=== PATIENT | female | born 1990 | race Caucasian/White ===

== ENCOUNTER 2018-08-07 12:45 | Observation (INO) | payer OTHER ==
--- NOTE | 2018-08-07 14:10 | PDGENHP ---
History and Physical - Chief Complaint contractions - History of Present Illness 28 at 33w4d by 6w6d US not c/w LMP, here for evaluation of contractions. Pt seen in the office today for regular visit. Noted contractions over the past 2 weeks. FFN was obtained, then SVE = 1/50%/-[address] Frank, who sent her to L&D for extended monitoring, after monitoring in the office showed regular contractions. Pt says these contractions over the past 2 weeks can occasionally be uncomfortable, but are not painful. They are the same as yesterday, which may be a little more than the day before. No VB, no LOF, No ssx PIH. Did not do 1 hour glucose angeline test - problem in lab then she declined doing it. Agrees to do it today here. After determining availability - pt willing to have consultation with MFM today - full growth and anatomy and eval cervix for labor. Transfer of care to [facility] at 18 weeks. labs: A pos, Rub Imm, UDS neg on 05/03/18, all others within normal limits, no Innatal done. POB: at 39wk, 7#3oz 05/2015, says pushed 7 hours, epidural at [facility] PMH: hyperemesis early in both pregnancies - per pt PSH: none Medications: PNV, has been on Bonjesta earlier in preg All: Reglan - hives FamHx: MGF: cardiac disease, HTN MGM: cardiac diseasem, Alzheimers F: DM2 1/2 sis: thyroid ca, colon ca sis x 2: depression History Information - Allergies/Home Medication List Allergies/Adverse Reactions: metoclopramide [From Reglan] Allergy (Verified 08/07/18 13:50) I have personally reviewed and updated: family history, medical history, social history, surgical history Review of Systems Review of Systems: ROS: 10pt was reviewed & negative except for what was stated in HPI & below Physical Exam Physical Exam: VSS afeb FHR: 130 reactive, cat 1 toco: q 3-8 min Constitutional: no apparent distress, appears nourished, other (significant facial / chin hirsutism) Eyes: PERRL, anicteric sclera Ears, Nose, Mouth, Throat: moist mucous membranes, hearing normal, ears appear normal Cardiovascular: regular rate and rhythym, no murmur, rub, or gallop Respiratory: no respiratory distress, no rales or rhonchi, clear to auscultation Gastrointestinal: normoactive bowel sounds, soft, non-tender abdomen, no palpable masses Genitourinary: no bladder fullness, other (TV US done - cervix measured: 4.0, 4.3, 4.7 cm, no funneling with fundal pressure) Skin: warm, normal color Musculoskeletal: full muscle strength Neurologic: AAOx3 Psychiatric: interacting appropriately, not anxious Lymph, Heme, Immunologic: lymphadenopathy Assessment & Plan Assessment: 28 at 33w4d by 6w6d US with contractions - currently no e/o pretertm labor with neg FFN and long cervix. S>D and was 15%ile at 19 wk scan - will have her see MFM today for growth and anatomy, and confirm no e/o PTL. 1 hr GTT pending right now. Will FU after has seen MFM. Madison Vega MD, FACOG [facility]
[2018-08-07 15:25] LABS: PLATELET COUNT 349 10^3/uL (150-400)
--- NOTE | 2018-08-07 18:13 | SOAPPROG ---
SOSAEED Progress Note Assessment/Plan: Assessment/Plan: 28 at 33w4d 1) no e/o labor - no cervix change, long cervix, neg FFN 2) Failed 1 hr GTT at 138 - given lab slip and instructions to complete 3 hr GTT - see instructions, if declines doing 3 hr then instructed to make appointment with tobacco drying machine operator to learn how to check and control blood sugars. 3) S>D on fundal height - JOYCE at upper limits of normal and EFW at 77%ile (was at 15%ile at 19 wk) - concern for GDM 4) UA - not suggestive of UTI, but + glucose - concern for GDM All above was discussed with patient prior to dc home. FU next week in office as scheduled. 08/07/18 18:04 Subjective: Pt feeling fine, and appreciative of getting US done. no change in contractions. Objective: Laboratory Results 08/07/18 15:15 see MFM report. SVE - no change, 09/17/high - Time Spent With Patient Time Spent With Patient: 15 min - Pending Discharge Pending Discharge Within 24 Hours: Yes Pending Discharge Within 48 Hours: Yes Pending Discharge Date: 08/08/18 Pending Discharge Time: 11:00 ICD10 Worksheet Patient Problems: Problems Problem Status Onset Glucosuria Acute contractions Acute - ICD10 Problem Qualifiers (1) contractions (2) Glucosuria
== END 2018-08-07 18:00 | disposition home or self-care (01) ==
LOC: FLD 12:45
PROVIDERS: ADMIT Hospitalist; ATTEND Hospitalist
DX: O47.03 False labor before 37 completed weeks of gestation, third trimester (principal); Z3A.33 33 weeks gestation of pregnancy
CPT/HCPCS: G0378

== ENCOUNTER 2018-09-13 06:50 | Inpatient (IN) | payer OTHER ==
[2018-09-13] MEDS ORDERED: MISOPROSTOL 200 MCG TAB ONE (07:03)
[2018-09-13] MEDS ORDERED: TERBUTALINE SULFATE 1 MG/ML VIAL ONE (07:03)
[2018-09-13] MEDS ORDERED: OXYTOCIN 10 UNIT/ML VIAL ONE (07:03)
[2018-09-13] MEDS ORDERED: AMMONIA AROMATIC 1 EACH AMP IH ONE (07:03)
[2018-09-13] MEDS ORDERED: LIDOCAINE 1% 300 MG/30 ML SDV ONE (07:03)
[2018-09-13] MEDS ORDERED: OLIVE OIL 118 ML BTL ONE (07:03)
[2018-09-13] MEDS ORDERED: OLIVE OIL 118 ML BTL MISC PRN (07:10)
[2018-09-13] MEDS ORDERED: MISOPROSTOL 200 MCG TAB PR PRN (07:10)
[2018-09-13] MEDS ORDERED: LIDOCAINE 1% 300 MG/30 ML SDV SC PRN (07:10)
[2018-09-13] MEDS ORDERED: IBUPROFEN 600 MG TAB PO PRN (07:10)
[2018-09-13] MEDS ORDERED: LR 1,000 ML IV PRN (07:10)
[2018-09-13] MEDS ORDERED: EPSOM SALT 454 GM TP PRN (07:10)
[2018-09-13] MEDS ORDERED: OXYTOCIN/RINGERS LACTATE 1,000 ML IV PRN (07:10)
[2018-09-13 07:39] LABS: PLATELET COUNT 395 10^3/uL (150-400)
[2018-09-13] MEDS ORDERED: HYDROCORTISONE 0.5% CREAM TP PRN (08:38)
[2018-09-13] MEDS ORDERED: SIMETHICONE 80 MG TAB CHEW PO PRN (08:38)
[2018-09-13] MEDS ORDERED: ACETAMINOPHEN 325 MG TAB PO PRN (08:38)
[2018-09-13] MEDS ORDERED: oxyCODONE IR 5 MG TAB PO PRN (08:38)
--- NOTE | 2018-09-13 08:43 | OBDEL ---
Info Type: Vaginal Presentation at Delivery: Vertex GBS+: No Intrapartum Medications: Generic Name Dose Route Start Last Admin Trade Name Yazan PRN Reason Stop Dose Admin Lidocaine HCl 300 mg 09/13/18 07:10 09/13/18 08:29 Lidocaine Hcl 1% SC 03/12/19 07:09 300 mg ONCE PRN Administration episiotomy Hall Oil 118 ml 09/13/18 07:10 09/13/18 08:29 Sweet Oil MISC 03/12/19 07:09 118 ml ONCE PRN Administration perineal massage Discontinued Medications Generic Name Dose Route Start Last Admin Trade Name Freq PRN Reason Stop Dose Admin Ibuprofen 600 mg 09/13/18 07:10 09/13/18 08:27 Motrin PO 600 mg ONCE PRN Administration post , pain - Hospital Course Intrapartum: 09/13/18 08:40 patient was 3 cm yesterday in the office. contractions began at 5 am. arrived to hospital at 650 am. 8 cm intact at 0658. SROM at 0720. Complete at 0725. did not receive requested epidural. tones to the 70s. delivered at 0731. placenta at 0738. im pitocin at 0801. apgars 8/9 Indications for Delivery: Spontaneous Labor Vaginal Delivery - Labor and Delivery Onset of Contractions Date: 09/13/18 Onset of Contractions Time: 05:30 Onset of Contractions Type: Spontaneous Rupture of Membranes Date: 09/13/18 Rupture of Membranes Time: 07:20 Rupture of Membranes Type: Spontaneous Amniotic Fluid Color: Meconium Stained Dilation Complete Date: 09/13/18 Dilation Complete Time: 07:25 Placenta Delivery Date: 09/13/18 Placenta Delivery Time: 07:31 Total Hours of Labor: 2 Laceration: 2nd Degree Repair: 3-0 Vaginal Sponge Count Correct: Yes Vaginal Needle Count Correct: Yes Vaginal Sweep Performed: No EBL: 100 Delivery Events: Nuchal Cord Delivery Comment: patient had a precipitous delivery attended by smita michel while i was enroute Data KENY: 09/21/18 Gestational Age: 38 week(s) and 6 day(s) Portillo Delivery Date: 09/13/18 Delivery Time: 07:31 Sex of : Female Score (1 Min): 8 Score (5 Min): 9 ICD10 Worksheet Patient Problems: Problems Problem Status Onset Glucosuria Acute contractions Acute
[2018-09-13] MEDS ORDERED: OXYTOCIN 10 UNIT/ML VIAL IM ONE (09:27)
[2018-09-13] MEDS: DOCUSATE SODIUM 100 MG CAP PO PRN (22:05)
[2018-09-14] MEDS: IBUPROFEN 600 MG TAB PO PRN ×2 (00:43→07:39)
[2018-09-14] MEDS: DOCUSATE SODIUM 100 MG CAP PO PRN (07:39)
[2018-09-14] MEDS ORDERED: FERRO-SEQUELS 65 MG TAB.ER PO SCH (09:00)
[2018-09-14 10:02] VITALS: BP 97/59
--- NOTE | 2018-09-14 10:23 | OBPP ---
Progress Note Assessment/Plan: Assessment: PPD 1 s/p precip , P2 anemia Plan: Desires D/C, rec iron daily 09/14/18 10:17 Subjective/ Course: 09/14/18 10:17 Pt doing well. Feels recovery going well - cramps with BF - strong, controlled by ibu. Bottom sore but much better than last time. urinating fine. bld is light. Baby is latching well. Wants d/c. advised of anemia and rec iron suppl Objective: 09/14/18 06:15 Patient ABO/Rh A POSITIVE 09/13/18 07:10 Temp Pulse Resp BP Pulse Ox 36.7 C 77 18 97/59 L 97 09/14/18 08:00 09/14/18 08:00 09/14/18 08:00 09/14/18 08:00 09/14/18 08:00 Uterine Position/Fundal Height: Umbilicus -1, Umbilicus -2 Uterine Tone: Firm Physical Exam - Physical Exam Abdomen: non-tender, soft, other (FF at umb -1, normal lochia) Extremities: non-tender, pedal edema (mild) Skin: normal color, warm/dry Neuro/Psych: alert, normal mood/affect
--- NOTE | 2018-09-14 11:09 | OBGCSDC ---
General Delivery Information - General Info : 2 Para: 2 Abortions: 0 Type: Vaginal L&D Analgesia/Anesthesia Type: Local Admission Date: 09/13/18 Labs: Patient ABO/Rh A POSITIVE 09/13/18 07:10 Hct 31.3 % (38.0-47.0) L 09/14/18 06:15 - Hospital Course Intrapartum: 09/13/18 08:40 patient was 3 cm yesterday in the office. contractions began at 5 am. arrived to hospital at 650 am. 8 cm intact at 0658. SROM at 0720. Complete at 0725. did not receive requested epidural. tones to the 70s. delivered at 0731. placenta at 0738. im pitocin at 0801. apgars 8/9 : 09/14/18 10:17 Pt doing well. Feels recovery going well - cramps with BF - strong, controlled by ibu. Bottom sore but much better than last time. urinating fine. bld is light. Baby is latching well. Wants d/c. advised of anemia and rec iron suppl Vaginal - Delivery Provider Delivery Physician/CNM: Leatha Reddy (del by Beatriz Albarado) - Diagnosis Labor: Spontaneous Rupture of Membranes Type: Spontaneous Amniotic Fluid Color: Meconium Stained Laceration: 2nd Degree Repair: 3-0 Delivery Events: Nuchal Cord - Delivery EBL: 100 Cody Data KENY: 09/21/18 Gestational Age: 39 week(s) and 0 day(s) Portillo Delivery Date: 09/13/18 Delivery Time: 07:31 Sex of : Female Cody Weight (gm): 3258 g Score (1 Min): 8 Score (5 Min): 9 Discharge Information - Discharge Information Condition: Good Instruction/Follow Up: See Instruction Sheet, Two Weeks (with therapist), Six Weeks (with Reddy)
--- NOTE | 2018-09-14 14:11 | GHP ---
DATE OF ADMISSION: 09/13/2018 HISTORY OF PRESENT ILLNESS: The patient is a 28-year-old 2, para 1-0-0-1, who was 39 weeks' , who has a history of a protracted 2nd phase of labor, and the patient was seen in the offic e the day before and was 3 cm dilated. She began having contractions at 5 o'clock in the morning. S he called the answering service but did not get a response at 6 o'clock in the morning so she showed up at labor and delivery just before 7 a.m. she was 7 or 8 cm dilated at that time and eugenio r egularly. Her bag of water was intact. The patient requested an epidural, however, her ru ptured, and she had a precipitous spontaneous vaginal delivery shortly after arrival to [facility] before anesthesia was obtained and while the patient was . Baby had a nuchal cord x1 on the perineum, which was cut by the nurse, and the infant delivered without difficulty. Intact pl acenta with 3-vessel cord delivered shortly following delivery of the baby. I then presented and per formed an exam. The patient used nitrous oxide and local anesthesia for repair of a second-degree lac eration, which was done with a 3-0 Vicryl suture. The patient and baby were both doing well followin g this precipitous delivery. REVIEW OF SYSTEMS: A 10-point review of systems was negative with the exception of the above-mention ed pertinent positives, spontaneous rupture of membrane, irregular contractions. She denies any head ache or changes in vision. PHYSICAL EXAM: VITAL SIGNS: Stable. GENERAL APPEARANCE: Uncomfortable. HEART: Regular, regular. LUNGS: Clear to auscultation bilaterally. ABDOMEN: Gravid, nondistended, nontender on arrival and had a firm uterus following delivery. She did receive IM Pitocin following delivery. labs are not available at this time. ASSESSMENT AND PLAN: A 28-year-old 2, para now 2-0-0-2, who presented in active labor and strauss d a precipitous delivery shortly after arrival on labor and delivery. GBS was negative. /[id number]/MODL
== END 2018-09-14 11:30 | disposition home or self-care (01) | DRG 807 ==
LOC: FLD 06:50 → FOB 11:31
PROVIDERS: ADMIT Obstetrics & Gynecology; ATTEND Obstetrics & Gynecology
PROC: 0KQM0ZZ Repair Perineum Muscle, Open Approach (ICD-10-PCS; principal; 2018-09-13)
PROC: 10E0XZZ Delivery of Products of Conception, External Approach (ICD-10-PCS; principal; 2018-09-13)
DX: O62.3 Precipitate labor (principal); O70.1 Second degree perineal laceration during delivery; O69.81X0 Labor and delivery complicated by cord around neck, without compression, not applicable or unspecified; O90.81 Anemia of the puerperium; Z3A.39 39 weeks gestation of pregnancy; Z37.0 Single live birth
CPT/HCPCS: J2590; J3105